=== PATIENT | female | born 1985 | race African-American/Black ===

== ENCOUNTER 2017-04-15 19:57 | Emergency (ER) | payer OTHER ==
[2017-04-15 20:41] LABS: BASOPHIL# 0.1 X10e3 (0-0.3); BASOPHIL% 0.4 % (0-2.5); EOSINOPHIL% 0.1 % (0.0-7.0); HEMATOCRIT 48.3 % (35.0-45.0); HEMOGLOBIN 16.7 gm/dL (12.0-16.0); LYMPHOCYTE# 1.8 X10e3 (1.0-3.5); LYMPHOCYTE% 13.3 % (17.0-45.0); MEAN CELL VOLUME 92.6 FL (83-96); MEAN CORPUSCULAR HEMOGLOBIN 31.9 PG (28-34); MEAN CORPUSCULAR HGB CONC 34.5 g/dL (30-36); MEAN PLATELET VOLUME 8.9 FL (6.5-11.5); MONOCYTE# 0.8 X10e3 (0-1.0); MONOCYTE% 6.2 % (3.0-12.0); PLATELET COUNT 311 X10e3 (140-420); RED BLOOD COUNT 5.22 X10e (3.90-5.30); WHITE BLOOD COUNT 13.8 X10e3 (4.0-10.5)
[2017-04-15 20:43] LABS: DIFF IND NO
[2017-04-15 21:00] LABS: URINE SOURCE CLEAN CATCH
[2017-04-15 21:03] LABS: ALBUMIN SERUM 5.3 g/dL (3.5-5.0); BILIRUBIN, DIRECT 0.2 mg/dL (0.0-0.2); BILIRUBIN,INDIRECT 1.3 mg/dL (0.0-0.9); BILIRUBIN,TOTAL 1.5 mg/dL (0.2-2.0); BUN/CREATININE RATIO 15.83; CALCIUM SERUM 9.7 mg/dL (8.4-10.2); CREATININE SERUM 1.2 mg/dL (0.6-1.4); GLOM FILT RATE Estimated 70.2 mL/min (>60); POTASSIUM 3.1 mmol/L (3.5-5.1); PROTEIN TOTAL SERUM 9.3 g/dL (6.0-8.3)
[2017-04-15 21:05] LABS: URINE APPEARANCE TURBID; URINE BLOOD TRACE (NEG); URINE COLOR DK YELLOW; URINE GLUCOSE NEG (NEG); URINE KETONE 3+ (NEG); URINE LEUKOCYTE ESTERASE 2+ (NEG); URINE NITRATE NEG (NEG); URINE PH 5.5 (5-8); URINE PROTEIN 2+ (NEG); URINE SPECIFIC GRAVITY 1.037 (1.003-1.035)
[2017-04-15 21:10] LABS: URINE BILIRUBIN NEG (NEG)
[2017-04-15 21:16] LABS: CULTURE INDICATED? YES; URBCS1 AUWI 0-2 /[HPF] (0-2); URINE BACTERIA AUWI 1+ (NEGATIVE); URINE SQUAMOUS EPITHELIAL CELL FEW /[HPF]
== END 2017-04-15 22:05 | disposition home or self-care (01) ==
LOC: CED 19:57
PROVIDERS: Emergency Medicine
DX: N30.00 Acute cystitis without hematuria (principal); K29.00 Acute gastritis without bleeding; F32.9 Major depressive disorder, single episode, unspecified; F17.210 Nicotine dependence, cigarettes, uncomplicated; Z98.51 Tubal ligation status
CPT/HCPCS: 36415; 80048; 80076; 81003; 82150; 83690; 84703; 85025; 87086; 99284; C9113; J2765